=== PATIENT | female | born 1960 ===

== ENCOUNTER 2019-07-08 11:39 | Emergency (ER) | payer MEDICAID, MEDICARE, OTHER ==
[2019-07-08 12:29] VITALS: BP 106/68
--- NOTE | 2019-07-08 13:30 | UC ---
Complaint Female HPI - HPI Summary HPI Summary: Pt presents with multiple c/o about diarrhea, protruding hemorrhoid, feeling of hemorrhoid in rectum and outer genital "skin bumps". Pt states she has had multiple "bouts" diarrhea and occasional nausea. Pt seems to be erratic in her knowledge of health history and appears to be a poor historian. Denies exposure to STI's - History Of Current Complaint Chief Complaint: [facility] Stated Complaint: PERSONAL Time Seen by Provider: 07/08/19 12:39 Hx Obtained From: Patient ?: No Onset/Duration: Sudden Onset, Lasting Days, Still Present Timing: Intermittent Severity Initially: Moderate Severity Currently: None Pain Intensity: 0 Aggravating Factor(s): Nothing Alleviating Factor(s): Nothing Associated Signs And Symptoms: Positive: Nausea, Genital Blisters - Risk Factors Ectopic Risk Factor: Negative Ovarian Torsion Risk Factor: Negative - Allergies/Home Medications Allergies/Adverse Reactions: Allergies Allergy/AdvReac Type Severity Reaction Status Date / Time Cephalosporins Allergy Unknown Verified 07/08/19 12:21 Reaction Details chlorpromazine Allergy Seizure Verified 07/08/19 12:21 [From Thorazine] Penicillins Allergy Unknown Verified 07/08/19 12:21 Reaction Details amoxicillin AdvReac Yeast Verified 07/08/19 12:21 Infection Home Medications: Home Medications Calcium Carbonate/Vitamin D3 [Calcium 500-Vit D3 200 Caplet] 1 tab PO DAILY 07/15 [History Confirmed 07/08/19] Divalproex ER TAB(*) [Depakote ER TAB(*)] 1,000 mg PO QPM 07/08/19 [History Confirmed 07/08/19] FLUoxetine CAP* [Prozac CAP*] 20 mg PO DAILY 07/08/19 [History Confirmed ] OLANzapine TAB* [Zyprexa 10 MG TAB*] 10 mg PO BEDTIME 07/08/19 [History Confirmed 07/08/19] Pantoprazole TAB (NF) [Protonix TAB (NF)] 20 mg PO 1830 07/08/19 [History Confirmed 07/08/19] Pregabalin CAP(*) [Lyrica CAP(*)] 25 mg PO DAILY MDD 25mg 07/08/19 [History Confirmed 07/08/19] QUEtiapine TAB* [Seroquel 100 MG *] 100 mg PO DAILY 07/08/19 [History Confirmed 07/08/19] PMH/Surg Hx/FS Hx/Imm Hx Previously Healthy: Yes - Surgical History Surgical History: Yes Surgery Procedure, Year, and Place: x2. oral surgeries - Family History Known Family History: Positive: Cardiac Disease - Social History Occupation: Unemployed Lives: Alone Alcohol Use: Occasionally Substance Use Type: None Smoking Status (MU): Heavy Every Day Tobacco Smoker Type: Cigarettes, Cigars Amount Used/How Often: 1PPD Length of Time of Smoking/Using Tobacco: Since Age 18 Have You Smoked in the Last Year: Yes Household Exposure Type: Cigarettes Review of Systems All Other Systems Reviewed And Are Negative: Yes Constitutional: Positive: Negative Skin: Positive: Negative Eyes: Positive: Negative ENT: Positive: Negative Respiratory: Positive: Negative Cardiovascular: Positive: Negative Gastrointestinal: Positive: Diarrhea, Nausea Genitourinary: Positive: Ulceration/Lesion, Other - hemorrhoid Motor: Positive: Negative Neurovascular: Positive: Negative Musculoskeletal: Positive: Negative Neurological: Positive: Negative Psychological: Positive: Negative Is Patient Immunocompromised?: No Physical Exam Triage Information Reviewed: Yes Appearance: Other: - unkempt Vital Signs: Initial Vital Signs Temp 98.4 F 07/08/19 12:16 Pulse 79 07/08/19 12:16 Resp 16 07/08/19 12:16 BP 106/68 07/08/19 12:16 Pulse Ox 97 07/08/19 12:16 Vital Signs Reviewed: Yes Eye Exam: Normal ENT Exam: Normal Dental: Positive: Gross Decay/Caries @ Respiratory: Positive: No respiratory distress Cardiovascular Exam: Normal Abdominal Exam: Normal Abdomen Description: Positive: Nontender Bowel Sounds: Positive: Present Pelvic Exam: Positive: External Exam Normal, Other - poor hygiene apparent with excoriated skin between buttocks, dried feces on skin of genitals, outer labia and genitals without lesion, redness or swelling. Pts tonny area was cleaned by me. Leatha Johnston was RN manager area. Musculoskeletal Exam: Normal Neurological Exam: Normal Psychological Exam: Normal Skin Exam: Other - exocoriated skin and dired feces between buttocks. Complaint Female Dx - Course Course Of Treatment: Pt was given skin care and hygiene education. Pt was told to f/u immediately with PCP for hematuria. - Differential Dx/Diagnosis Differential Diagnosis/HQI/PQRI: Urinary Tract Infection Provider Diagnosis: Diarrhea, Excoriated rash, Poor hygiene Discharge ED - Sign-Out/Discharge Documenting (check all that apply): Patient Departure All imaging exams completed and their final reports reviewed: No Studies - Discharge Plan Condition: Stable Disposition: HOME Prescriptions: Loperamide CAP* [Imodium CAP*] 2 mg PO Q4H PRN #12 cap PRN Reason: Diarrhea Zinc Oxide [Desitin] 57 gm TP BEDTIME #1 cream..g. Patient Education Materials: Zinc Oxide (On the skin), Hemorrhoids (ED), Acute Diarrhea (ED), Hematuria (ED) Referrals: Catherine Calzada MD [Primary Care Provider] - As Soon As Possible - Billing Disposition and Condition Condition: STABLE Disposition: Home
== END 2019-07-08 13:35 | disposition home or self-care (01) ==
LOC: UCCORT 11:39
DX: R19.7 Diarrhea, unspecified (principal); F17.290 Nicotine dependence, other tobacco product, uncomplicated; F17.210 Nicotine dependence, cigarettes, uncomplicated; R11.0 Nausea; K64.9 Unspecified hemorrhoids; F42.4 Excoriation (skin-picking) disorder; Z88.8 Allergy status to other drugs, medicaments and biological substances; Z88.1 Allergy status to other antibiotic agents
CPT/HCPCS: 81003; 99213; G0463